=== PATIENT | male | born 1960 | race Caucasian/White ===

== ENCOUNTER 2017-02-13 20:23 | Emergency (ER) | payer BC, OTHER ==
[~2017-02-13] VITALS: Ht 182.9 cm; Wt 91.1 kg
[2017-02-13 20:34] VITALS: TEMP 36.7; Ht 182.9 cm; Wt 91.1 kg
--- NOTE | 2017-02-13 20:55 | EMERGENCY ROOM VISIT NOTE ---
History Report prepared by Ebony: Cindy Castro Under the Supervision of: Dr. Ori Hess M.D. First contact with patient: 20:40 Chief Complaint: SYNCOPE Stated Complaint: Syncope History of Present Illness The patient is a 56 year old male who presents to the Emergency Room with complaints of near syncopal episode. He states he was sitting at the dinner table and was reading his phone when "out of nowhere," he started to feel nauseous. The nausea worsened over time so he got up to use the bathroom and "started seeing stars." He notes he became diaphoretic. The patient was running into chairs and tables until he was lowered to the floor after experiencing a near syncopal episode. He felt better after lying there for a while and states he feels fine now. He reports he was sitting at a desk all day today. He denies eating normally as he did not eat breakfast today and is "incredibly thirsty." He takes Zantac and Prilosec as he has a history of GERD. He has a doctor, but does not see him normally. In the past when he has felt heartburn, he takes Zantac. He denies any abdominal or chest pain. Nursing staff reports his BSG was 133 in the field. Source of History: patient Onset: SHOOK SPLICER Position: other (global ) Timing: resolved Associated Symptoms: + diaphoresis, + nausea, No chest pain, No abdominal pain Review of Systems See HPI for pertinent positives & negatives. A total of 10 systems reviewed and were otherwise negative. Past Medical & Surgical Medical Problems: (1) GERD (gastroesophageal reflux disease) Social History Smoking Status: Never Smoker Alcohol Use: occasionally Drug Use: none Marital Status: Housing Status: lives with family Occupation Status: employed Current/Historical Medications Scheduled PRN Aspirin (Aspirin Ec), 650 MG PO DAILY PRN for UNDECIDED Omeprazole (Prilosec), 20 MG PO DAILY PRN for GI Upset Allergies Coded Allergies: No Known Allergies (Verified Allergy, Unknown, 02/27/03) Physical Exam Vital Signs Date Time Temp Pulse Resp B/P (MAP) Pulse Ox O2 Delivery O2 Flow Rate FiO2 02/13/17 22:23 83 20 121/83 95 02/13/17 21:12 90 02/13/17 21:08 96 Room Air 02/13/17 21:08 96 Room Air 11/27/17 20:45 84 20 119/84 97 Room Air 90 132/96 95 124/92 02/13/17 20:34 36.7 96 18 125/92 96 Room Air Physical Exam GENERAL: Patient is a healthy-appearing well-nourished 56 year old male. HEAD: Normocephalic atraumatic EYES: Ocular movements intact pupils equal and react to light OROPHARYNX mucous membranes are moist no exudates present no erythema or edema present NECK: Supple no nuchal rigidity CHEST: Good equal expansion LUNGS: Clear and equal to auscultation CARDIAC: Normal S1 and S2 ABDOMEN: Soft nontender no guarding BACK: No CVA tenderness EXTREMITIES: No pain upon palpation normal muscle strength in all groups no clubbing cyanosis or edema NEURO: Patient is following commands and answering questions appropriately. Alert and oriented x3 Cranial Nerves 2-12 grossly intact Medical Decision & Procedures ER Provider Diagnostic Interpretation: Radiology results as stated below per my review and radiologist interpretation: CHEST ONE VIEW PORTABLE CLINICAL HISTORY: 56 years-old Male presenting with Pt c/o syncopal episode. TECHNIQUE: Portable upright AP view of the chest was obtained. COMPARISON: None. FINDINGS: Cardiomediastinal silhouette normal. Lungs and pleural spaces clear. Osseous structures normal. Upper abdomen normal. IMPRESSION: 1. No acute cardiopulmonary disease. Electronically signed by: Taran Mcelroy M.D. 02/13/2017 9:47 PM Laboratory Results 02/13/17 21:14 Red Blood Count 4.96, Mean Corpuscular Volume 89.5, Mean Corpuscular Hemoglobin 31.3, Mean Corpuscular Hemoglobin Concent 34.9, Mean Platelet Volume 10.1, Neutrophils (%) (Auto) 64.0, Lymphocytes (%) (Auto) 23.5, Monocytes (%) (Auto) 7.7, Eosinophils (%) (Auto) 4.0, Basophils (%) (Auto) 0.4, Neutrophils # (Auto) 4.85, Lymphocytes # (Auto) 1.78, Monocytes # (Auto) 0.58, Eosinophils # (Auto) 0.30, Basophils # (Auto) 0.03 02/13/17 21:14 Test 02/13/17 21:14 02/13/17 21:46 White Blood Count 7.57 K/uL (4.8-10.8) Red Blood Count 4.96 M/uL (4.7-6.1) Hemoglobin 15.5 g/dL (14.0-18.0) Hematocrit 44.4 % (42-52) Mean Corpuscular Volume 89.5 fL (80-100) Mean Corpuscular Hemoglobin 31.3 pg (25-34) Mean Corpuscular Hemoglobin Concent 34.9 g/dl (32-36) Platelet Count 230 K/uL (130-400) Mean Platelet Volume 10.1 fL (7.4-10.4) Neutrophils (%) (Auto) 64.0 % Lymphocytes (%) (Auto) 23.5 % Monocytes (%) (Auto) 7.7 % Eosinophils (%) (Auto) 4.0 % Basophils (%) (Auto) 0.4 % Neutrophils # (Auto) 4.85 K/uL (1.4-6.5) Lymphocytes # (Auto) 1.78 K/uL (1.2-3.4) Monocytes # (Auto) 0.58 K/uL (0.11-0.59) Eosinophils # (Auto) 0.30 K/uL (0-0.5) Basophils # (Auto) 0.03 K/uL (0-0.2) RDW Standard Deviation 41.6 fL (36.4-46.3) RDW Coefficient of Variation 12.7 % (11.5-14.5) Immature Granulocyte % (Auto) 0.4 % Immature Granulocyte # (Auto) 0.03 K/uL (0.00-0.02) Anion Gap 9.0 mmol/L (3-11) Est Creatinine Clear Calc Drug Dose 85.4 ml/min Estimated GFR () 90.5 Estimated GFR (Non- 78.1 BUN/Creatinine Ratio 14.3 (10-20) Calcium Level 8.7 mg/dl (8.5-10.1) Total Bilirubin 0.4 mg/dl (0.2-1) Direct Bilirubin 0.2 mg/dl (0-0.2) Aspartate Amino Transf (AST/SGOT) 46 U/L (15-37) Alanine Aminotransferase (ALT/SGPT) 98 U/L (12-78) Alkaline Phosphatase 72 U/L (45-117) Total Creatine Kinase 112 U/L (39-308) Creatine Kinase MB < 0.5 ng/ml (0.5-3.6) Creatine Kinase MB Ratio (0-3.0) Troponin I < 0.015 ng/ml (0-0.045) Total Protein 6.8 gm/dl (6.4-8.2) Albumin 3.6 gm/dl (3.4-5.0) Thyroid Stimulating Hormone (TSH) 2.140 uIu/ml (0.300-4.500) Urine Color YELLOW Urine Appearance CLEAR (CLEAR) Urine pH 5.0 (4.5-7.5) Urine Specific Morgan 1.025 (1.000-1.030) Urine Protein NEG (NEG) Urine Glucose (UA) NEG (NEG) Urine Ketones NEG (NEG) Urine Occult Blood NEG (NEG) Urine Nitrite NEG (NEG) Urine Bilirubin NEG (NEG) Urine Urobilinogen NEG (NEG) Urine Leukocyte Esterase NEG (NEG) Labs reviewed by ED physician. ECG Indication: syncope Rate (beats per minute): 80 Rhythm: normal sinus Findings: no acute ischemic change, no ectopy ED Course 2042: Past medical records reviewed. The patient was evaluated in room A12. A complete history and physical examination was performed. 2209: I reevaluated the patient. He is feeling well and resting comfortably. I discussed his results and discharge instructions and he verbalized complete understanding and agreement. Medical Decision Prior records/ancillary studies reviewed. Triage Nursing notes reviewed. The patient's history was concerning for syncope. Differential diagnosis: Etiologies such as vasovagal event, infection, hypoglycemia, electrolyte abnormalities, cardiac sources, intracerebral event, toxicologic, neurologic, as well as others were entertained. This is a 56-year-old male who presents emergency department after vasovagal episode while at a restaurant this evening. Upon arrival to emergency department the patient is feeling much better. Due to a shortage of IV fluids the patient was hydrated by mouth in the emergency Department with both water and Gatorade. He has normal CBC normal renal profile normal liver profile normal lipase. He is not tachycardic and has a normal EKG. Based on these findings I felt that the patient can be safely discharged home. I discussed eating meals regularly and increasing fluids for the next 48 hours. Patient was in agreement with the treatment plan Medication Reconcilliation Current Medication List: was personally reviewed by me Blood Pressure Screening Patient's blood pressure: Normal blood pressure Blood pressure disposition: Did not require urgent referral Impression Primary Impression: Vasovagal episode Scribe Attestation The scribe's documentation has been prepared under my direction and personally reviewed by me in its entirety. I confirm that the note above accurately reflects all work, treatment, procedures, and medical decision making performed by me. Departure Information Dispostion Home / Self-Care Patient Instructions ED Near Syncope Vasovagal, My [facility], Treatment for Vasovagal Syncope, Understanding Vasovagal Syncope Additional Instructions Increase fluids next 48 hours You have been examined and treated today on an emergency basis only. This is not a substitute for, or an effort to provide, complete comprehensive medical care. It is impossible to recognize and treat all injuries or illnesses in a single emergency department visit. It is therefore important that you follow up closely with Dr Dutton. Call as soon as possible for an appointment. Thank you for your time and consideration. I look forward to speaking with you again soon. Please don't hesitate to call us if you have any questions.
[2017-02-13 21:08] VITALS: O2SAT 96
[2017-02-13] MEDS ORDERED: PRLSR20 PO (21:28)
[2017-02-13] MEDS ORDERED: ASPI325T39 PO (21:29)
[2017-02-13 21:37] LABS: BASO % 0.4 %; BASO ABS # 0.03 K/uL (0-0.2); COMPLETE YES; HEMATOCRIT 44.4 % (42-52); IG% 0.4 %; LYMPH % 23.5 %; LYMPH ABS # 1.78 K/uL (1.2-3.4); MEAN CELL VOLUME 89.5 fL (80-100); MEAN CORPUSCULAR HEMOGLOBIN 31.3 pg (25-34); MEAN CORPUSCULAR HGB CONC 34.9 g/dl (32-36); MEAN PLATELET VOLUME 10.1 fL (7.4-10.4); MONO % 7.7 %; PLATELET COUNT 230 K/uL (130-400); RED BLOOD COUNT 4.96 M/uL (4.7-6.1); WHITE BLOOD COUNT 7.57 K/uL (4.8-10.8)
[2017-02-13 21:46] LABS: ALT/SGPT 98 U/L (12-78); BLOOD UREA NITROGEN 15 mg/dl (7-18); BUN/CREATININE RATIO 14.3 (10-20); CALCIUM 8.7 mg/dl (8.5-10.1); CARBON DIOXIDE 24 mmol/L (21-32); CHLORIDE 105 mmol/L (98-107); CREATININE 1.06 mg/dl (0.60-1.40); GLUCOSE 128 mg/dl (70-99); POTASSIUM 3.6 mmol/L (3.5-5.1); SODIUM 138 mmol/L (136-145)
--- NOTE | 2017-02-13 21:48 | DIAGNOSTIC IMAGING REPORT ---
CHEST ONE VIEW PORTABLE CLINICAL HISTORY: 56 years-old Male presenting with Pt c/o syncopal episode. TECHNIQUE: Portable upright AP view of the chest was obtained. COMPARISON: None. FINDINGS: Cardiomediastinal silhouette normal. Lungs and pleural spaces clear. Osseous structures normal. Upper abdomen normal. IMPRESSION: 1. No acute cardiopulmonary disease. Electronically signed by: Taran Mcelroy M.D. 02/13/2017 9:47 PM Dictated Date/Time: 02/13/2017 9:46 PM
[2017-02-13 21:57] LABS: URINE APPEARANCE CLEAR (CLEAR); URINE BILIRUBIN NEG (NEG); URINE COLOR YELLOW; URINE NITRITE NEG (NEG); URINE SPECIFIC GRAVITY 1.025 (1.000-1.030); UROBILINOGEN NEG (NEG)
[2017-02-13 22:04] LABS: ALKALINE PHOSPHATASE 72 U/L (45-117); AST/SGOT 46 U/L (15-37)
[2017-02-13 22:05] LABS: MANUAL MICROSCOPIC REQUIRED? NO; REVIEW REQ? NO
[2017-02-13 22:23] VITALS: BP 121/83; PULSE 83; O2SAT 95
== END 2017-02-13 22:14 | disposition home or self-care (01) ==
LOC: EDBD 20:23 → C.EDA 20:24
DX: R55 Syncope and collapse (principal)